=== PATIENT | male | born 1995 ===

== ENCOUNTER 2017-09-16 09:23 | Observation (INO) | payer OTHER ==
[~2017-09-16] VITALS: Ht 175.3 cm; Wt 78.0 kg
[2017-09-16] VITALS (7 sets, daily range): BP systolic 94–118; BP diastolic 53–74; PULSE 93–108; TEMP 37.2–38.1; O2SAT 98–100; Ht 175.3 cm; Wt 78.0 kg
[2017-09-16] MEDS ORDERED: ACET-1256 PO (09:48)
[2017-09-16] MEDS ORDERED: ANT PO (09:48)
--- NOTE | 2017-09-16 10:32 | EMERGENCY ROOM VISIT NOTE ---
History Report prepared by Rafaelaibjerri: Krista Hernandez Under the Supervision of: Dr. Asad Grayson M.D. First contact with patient: 09:33 Chief Complaint: ABDOMINAL PAIN Stated Complaint: STOMACH PAIN Nursing Triage Summary: Bilateral lower abdominal pain starting yesterday morning. N/V/D. Denies urinary symptoms. History of Present Illness The patient is a 22 year old male who presents to the Emergency Room with complaints of persistent bilateral lower abdominal pain since yesterday morning. He rates his discomfort as a 5/10 in severity. He has also experienced nausea, vomiting and diarrhea. He vomited twice yesterday. There has been no blood in his vomit or in his stool. He states he feels warm and thinks he may have a fever. The patient has no history of abdominal surgery. He admits to some discomfort when urinating. He denies any abnormal penile discharge or hematuria. He has experienced no testicular pain. He last ate last night at 1930. Source of History: patient Onset: yesterday morning Position: abdomen (RLQ, LLQ ) Timing: other (persistent) Associated Symptoms: + fevers, + nausea, + vomiting, + diarrhea, + urinary symptoms Review of Systems See HPI for pertinent positives and negatives. A total of ten systems were reviewed and were otherwise negative. Past Medical & Surgical Medical Problems: (1) No significant past medical history Social History Smoking Status: Never Smoker Alcohol Use: occasionally Drug Use: none Marital Status: single Housing Status: lives with roommate Occupation Status: [employer] student Current/Historical Medications Scheduled PRN Acetaminophen (Tylenol), 500 MG PO UD PRN for illness Antacid (Antacid), 1 TAB PO UD PRN for illness Allergies Coded Allergies: Uncoded Nonscreenable Allergen (Verified Allergy, Unknown, tempurature flutuations, 09/16/17) Physical Exam Vital Signs Date Time Temp Pulse Resp B/P (MAP) Pulse Ox O2 Delivery O2 Flow Rate FiO2 09/16/17 15:25 37.2 109 17 110/76 100 Nasal Cannula 2 09/16/17 15:15 114 21 125/72 99 Nasal Cannula 2 09/16/17 15:05 118 16 124/68 99 Nasal Cannula 2 09/16/17 14:55 119 14 109/71 98 Nasal Cannula 2 09/16/17 14:45 117 20 123/66 100 Oxymask 8 09/16/17 14:35 114 19 118/60 100 Oxymask 8 09/16/17 14:25 37.1 127 18 114/54 96 Oxymask 8 09/16/17 13:21 117 18 119/59 98 09/16/17 13:00 117 18 119/59 98 Room Air 09/16/17 10:54 130 18 98/52 100 Room Air 09/16/17 09:25 37.0 130 20 98/59 95 Room Air Physical Exam Physical Exam GENERAL: He is oriented to person, place, and time. He appears well-developed and well-nourished. He does not appear distressed. ____ HENT: Exam performed. Head: Normocephalic and atraumatic. Right Ear: External ear normal. No mastoid tenderness. Left Ear: External ear normal. No mastoid tenderness. Mouth/Throat: The oropharynx is clear and moist. No trismus in the jaw. No dental abscesses or uvula swelling. No oropharyngeal exudate or tonsillar abscesses. ____ EYES: Conjunctivae and EOM are normal. Pupils are equal, round, and reactive to light. Right eye exhibits no discharge. Left eye exhibits no discharge. No scleral icterus. ____ NECK: Normal range of motion. Neck supple. No JVD present. No spinous process tenderness present. No carotid bruit present. No rigidity. No tracheal deviation and normal range of motion present. No Brudzinski's sign and no Kernig 's sign noted. ____ CV: Normal rate, regular rhythm, normal heart sounds and intact distal pulses. There is no peripheral edema. Palpable radial pulses bue. ____ PULM/CHEST: Effort normal and breath sounds normal. No respiratory distress. No stridor. He has no wheezes. He has no rales. Chest Wall: He exhibits no tenderness. ____ ABD: The abdomen is soft. Tenderness on palpation of the RLQ and suprapubic area. Bowel sounds are normal. He has no distension. No mass is present. . There is no rebound, no guarding, no Leon's sign. Tenderness at McBurney's point. Rovsig negative MUSC/SKEL: Normal range of motion. There is no peripheral edema, tenderness or deformity. LYMPH: No cervical adenopathy. ____ NEURO: He is alert and oriented to person, place, and time. He has normal strength. No cranial nerve deficit or sensory deficit. Coordination and gait normal. GCS eye subscore is 4. GCS verbal subscore is 5. GCS motor subscore is 6. cerebellar tests wnl. ____ SKIN: Skin is warm and dry. He is not diaphoretic. ____ PSYCH: He has a normal mood and affect. His behavior is normal. Judgment and thought content normal. ____ Medical Decision & Procedures ER Provider Diagnostic Interpretation: Radiology results as stated below per my review and radiologist interpretation: ABD/PELVIS IV CONTRAST ONLY CT DOSE: 448.74 mGy.cm HISTORY: Right flank pain r/o appy TECHNIQUE: Multiaxial CT images of the abdomen and pelvis were performed following the use of intravenous contrast. A dose lowering technique was utilized adhering to the principles of ALARA. COMPARISON STUDY: None. FINDINGS: Lung bases are clear. Liver spleen and pancreas enhance uniformly. Kidneys negative for mass or hydronephrosis. The gallbladder is negative for distention. The bowel pattern is nonobstructive. The appendix is retrocecal in location. It is distended at 9 mm. Moderate periappendiceal fat infiltration is present. This consistent with that of acute appendicitis. No evidence for abscess or collection. Several small regional reactive lymph nodes. Bladder is midline. No free fluid within the pelvic cul-de-sac. Pelvic bowel pattern is nonobstructive. IMPRESSION: 1. Acute appendicitis. 2. Moderate periappendiceal fat infiltrative change 3. No evidence for abscess collection or obstruction. The above report was generated using voice recognition software. It may contain grammatical, syntax or spelling errors. Electronically signed by: Jose Bergeron M.D. 09/16/2017 11:32 AM Laboratory Results 09/16/17 09:40 Red Blood Count 5.62, Mean Corpuscular Volume 81.1, Mean Corpuscular Hemoglobin 26.9, Mean Corpuscular Hemoglobin Concent 33.1, Mean Platelet Volume 10.6, Neutrophils (%) (Auto) 59.1, Lymphocytes (%) (Auto) 38.4, Monocytes (%) (Auto) 1.5, Eosinophils (%) (Auto) 0.7, Basophils (%) (Auto) 0.3, Neutrophils # (Auto) 4.48, Lymphocytes # (Auto) 2.91, Monocytes # (Auto) 0.11, Eosinophils # (Auto) 0.05, Basophils # (Auto) 0.02 09/16/17 09:40 Test 09/16/17 09:35 09/16/17 09:40 Urine Color YELLOW Urine Appearance CLEAR (CLEAR) Urine pH 7.5 (4.5-7.5) Urine Specific [place] 1.023 (1.000-1.030) Urine Protein NEG (NEG) Urine Glucose (UA) NEG (NEG) Urine Ketones NEG (NEG) Urine Occult Blood NEG (NEG) Urine Nitrite NEG (NEG) Urine Bilirubin NEG (NEG) Urine Urobilinogen NEG (NEG) Urine Leukocyte Esterase NEG (NEG) White Blood Count 7.57 K/uL (4.8-10.8) Red Blood Count 5.62 M/uL (4.7-6.1) Hemoglobin 15.1 g/dL (14.0-18.0) Hematocrit 45.6 % (42-52) Mean Corpuscular Volume 81.1 fL (80-100) Mean Corpuscular Hemoglobin 26.9 pg (25-34) Mean Corpuscular Hemoglobin Concent 33.1 g/dl (32-36) Platelet Count 268 K/uL (130-400) Mean Platelet Volume 10.6 fL (7.4-10.4) Neutrophils (%) (Auto) 59.1 % Lymphocytes (%) (Auto) 38.4 % Monocytes (%) (Auto) 1.5 % Eosinophils (%) (Auto) 0.7 % Basophils (%) (Auto) 0.3 % Neutrophils # (Auto) 4.48 K/uL (1.4-6.5) Lymphocytes # (Auto) 2.91 K/uL (1.2-3.4) Monocytes # (Auto) 0.11 K/uL (0.11-0.59) Eosinophils # (Auto) 0.05 K/uL (0-0.5) Basophils # (Auto) 0.02 K/uL (0-0.2) RDW Standard Deviation 39.7 fL (36.4-46.3) RDW Coefficient of Variation 13.4 % (11.5-14.5) Immature Granulocyte % (Auto) 0.0 % Immature Granulocyte # (Auto) 0.00 K/uL (0.00-0.02) Anion Gap 11.0 mmol/L (3-11) Est Creatinine Clear Calc Drug Dose 121.5 ml/min Estimated GFR () 129.7 Estimated GFR (Non- 111.9 BUN/Creatinine Ratio 8.4 (10-20) Calcium Level 9.6 mg/dl (8.5-10.1) Total Bilirubin 0.6 mg/dl (0.2-1) Aspartate Amino Transf (AST/SGOT) 19 U/L (15-37) Alanine Aminotransferase (ALT/SGPT) 36 U/L (12-78) Alkaline Phosphatase 85 U/L (45-117) Total Protein 8.7 gm/dl (6.4-8.2) Albumin 4.3 gm/dl (3.4-5.0) Globulin 4.4 gm/dl (2.5-4.0) Albumin/Globulin Ratio 1.0 (0.9-2) Lipase 116 U/L (73-393) Laboratory results reviewed by me Medications Administered Medications (Trade) Dose Ordered Sig/Guadalupe Route Start Time Stop Time Status Last Admin Dose Admin Sodium Chloride 1,000 ml @ 999 mls/hr Q1H1M STAT IV 09/16/17 10:37 09/16/17 11:37 DC 09/16/17 10:52 999 MLS/HR Ondansetron HCl (Zofran Inj) 4 mg NOW STAT IV 09/16/17 10:37 09/16/17 10:40 DC 09/16/17 10:52 4 MG Ceftriaxone Sodium (Rocephin Inj) 1 gm NOW STAT IV 09/16/17 11:44 09/16/17 11:47 DC 09/16/17 12:04 1 GM Metronidazole (Flagyl / Nss) 500 mg NOW STAT IV 09/16/17 11:44 09/16/17 11:47 DC 09/16/17 12:00 500 MG Ondansetron HCl (Zofran Inj) 4 mg ONE PRN IV 09/16/17 12:30 09/16/17 14:56 DC 09/16/17 14:51 4 MG Bupivacaine HCl/ Epinephrine Bitart (Sensorcaine/ Epinephrine 0.5% Mpf 1:200,000) 30 ml STK-MED ONCE .ROUTE 09/16/17 13:15 09/16/17 13:16 DC 09/16/17 14:00 20 ML Promethazine HCl 12.5 mg/Sodium Chloride 50.5 ml @ 202 mls/hr TODAY@1515 ONCE IV 09/16/17 15:15 09/16/17 15:29 DC 09/16/17 15:19 202 MLS/HR ED Course 1036: The patient was evaluated in room B10. A complete history and physical exam was performed. 1037: Zofran 4 mg IV, NSS 1000 ml @ 999 mls/hr iV. 1143: I reevaluated the patient. CT shows appendicitis. I discussed his CT scan results and he verbalized complete understanding and agreement. 1144: Flagyl 500 mg IV, Rocephin 1 gm IV. 1150: I discussed the patients case with Dr. Garcia, [facility]. The patient will be further evaluated. 1220: I reevaluated the patient. His vital signs are stable. I had a long discussion with the patient about the risks and benefits of being admitted for a surgical procedure, and he wants me to speak with his uncle and father. His father is in [place] and his uncle is in [place]. I attempted to connect with the patients father in [place] via the patients cellphone but was unsuccessful. I was able to speak with his uncle in [place], and he asked if the patient could be flown to [place] for surgery. I advised against this given the acuity of the patients condition. He is agreeable that the patient be treated here for a surgical procedure. Medical Decision CT shows appendicitis. IV antibiotics ordered. Patient admitted to surgery.I had a long discussion with the patient about the risks and benefits of being admitted for a surgical procedure, and he wants me to speak with his uncle and father. His father is in [place] and his uncle is in [place]. I attempted to connect with the patients father in [place] via the patients cellphone but was unsuccessful. I was able to speak with his uncle in [place], and he asked if the patient could be flown to [place] for surgery. I advised against this given the acuity of the patients condition. He is agreeable that the patient be treated here for a surgical procedure. Patient also agrees. Medication Reconcilliation Current Medication List: was personally reviewed by me Blood Pressure Screening Patient's blood pressure: Low blood pressure Consults Time Called: 1145 Consulting Physician: Dr. Garcia, [facility] Returned Call: 1150 I discussed the patients case with Dr. Garcia, [facility]. The patient will be further evaluated. Impression Primary Impression: Acute appendicitis Scribe Attestation The scribe's documentation has been prepared under my direction and personally reviewed by me in its entirety. I confirm that the note above accurately reflects all work, treatment, procedures, and medical decision making performed by me. The chart was completed utilizing [employer] Speech voice recognition software. Grammatical errors, random word insertions, pronoun errors, and incomplete sentences are an occasional consequence of this system due to software limitations, ambient noise, and hardware issues. Any formal questions or concerns about the content, text, or information contained within the body of this dictation should be directly addressed to the physician for clarification. Departure Information Dispostion Being Evaluated By Surgeon Patient Instructions My [facility]
[2017-09-16] MEDS ORDERED: ONDANSETRON INJ 2 MG/ML 2 ML VIAL IV STA (10:37)
[2017-09-16] MEDS ORDERED: SODIUM CHLORIDE 0.9% 1000ML 1,000 ML IV STA (10:37)
[2017-09-16 10:45] LABS: BASO % 0.3 %; BASO ABS # 0.02 K/uL (0-0.2); EOS % 0.7 %; EOS ABS # 0.05 K/uL (0-0.5); HEMATOCRIT 45.6 % (42-52); HEMOGLOBIN 15.1 g/dL (14.0-18.0); LYMPH % 38.4 %; LYMPH ABS # 2.91 K/uL (1.2-3.4); MEAN CELL VOLUME 81.1 fL (80-100); MEAN CORPUSCULAR HEMOGLOBIN 26.9 pg (25-34); MEAN CORPUSCULAR HGB CONC 33.1 g/dl (32-36); MEAN PLATELET VOLUME 10.6 fL (7.4-10.4); MONO % 1.5 %; MONO ABS # 0.11 K/uL (0.11-0.59); NEUT % 59.1 %; NEUT ABS # 4.48 K/uL (1.4-6.5); PLATELET COUNT 268 K/uL (130-400); RED CELL DISTRIBUTION WIDTH CV 13.4 % (11.5-14.5); RED CELL DISTRIBUTION WIDTH SD 39.7 fL (36.4-46.3); WHITE BLOOD COUNT 7.57 K/uL (4.8-10.8)
[2017-09-16] MEDS ORDERED: OPTIRAY 320 IV PRN (10:45)
[2017-09-16 10:53] LABS: ALBUMIN 4.3 gm/dl (3.4-5.0); CALCIUM 9.6 mg/dl (8.5-10.1); CREATININE 0.97 mg/dl (0.60-1.40); POTASSIUM 3.5 mmol/L (3.5-5.1)
[2017-09-16 10:56] LABS: TOTAL PROTEIN 8.7 gm/dl (6.4-8.2)
--- NOTE | 2017-09-16 11:33 | DIAGNOSTIC IMAGING REPORT ---
ABD/PELVIS IV CONTRAST ONLY CT DOSE: 448.74 mGy.cm HISTORY: Right flank pain r/o appy TECHNIQUE: Multiaxial CT images of the abdomen and pelvis were performed following the use of intravenous contrast. A dose lowering technique was utilized adhering to the principles of ALARA. COMPARISON STUDY: None. FINDINGS: Lung bases are clear. Liver spleen and pancreas enhance uniformly. Kidneys negative for mass or hydronephrosis. The gallbladder is negative for distention. The bowel pattern is nonobstructive. The appendix is retrocecal in location. It is distended at 9 mm. Moderate periappendiceal fat infiltration is present. This consistent with that of acute appendicitis. No evidence for abscess or collection. Several small regional reactive lymph nodes. Bladder is midline. No free fluid within the pelvic cul-de-sac. Pelvic bowel pattern is nonobstructive. IMPRESSION: 1. Acute appendicitis. 2. Moderate periappendiceal fat infiltrative change 3. No evidence for abscess collection or obstruction. The above report was generated using voice recognition software. It may contain grammatical, syntax or spelling errors. Electronically signed by: Joes Bergeron M.D. 09/16/2017 11:32 AM Dictated Date/Time: 09/16/2017 11:29 AM
[2017-09-16] MEDS ORDERED: CEFTRIAXONE SOD INJ 1 GM ADDVIAL IV STA (11:44)
[2017-09-16] MEDS ORDERED: METRONIDAZOLE 500MG / 100ML NSS IV STA (11:44)
[2017-09-16] MEDS ORDERED: EpHEDrine SULFATE INJ 50 MG/ML AMP IV PRN (12:30)
[2017-09-16] MEDS ORDERED: ATROPINE SULFATE 0.1 MG/ML 5ML SYR IV PRN (12:30)
[2017-09-16] MEDS ORDERED: FENTANYL CITRATE INJ 50 MCG/1 ML 2 ML VIAL IV PRN (12:30)
[2017-09-16] MEDS ORDERED: ONDANSETRON INJ 2 MG/ML 2 ML VIAL IV PRN ×2 (12:30→13:00)
[2017-09-16] MEDS ORDERED: ONDANSETRON INJ 2 MG/ML 2 ML VIAL ONE (12:42)
[2017-09-16] MEDS ORDERED: GLYCOPYRROLATE INJ 0.2 MG/ML VIAL ONE (12:42)
[2017-09-16] MEDS ORDERED: MIDAZOLAM HCL 1 MG/ML 2ML VIAL ONE (12:42)
[2017-09-16] MEDS ORDERED: EpHEDrine SULFATE INJ 50 MG/ML AMP ONE (12:42)
[2017-09-16] MEDS ORDERED: DEXAMETHASONE SOD INJ 4 MG/ML VIAL ONE (12:42)
[2017-09-16] MEDS ORDERED: PROPOFOL IV EMULSION 10 MG/ML 20 ML VIAL IV ONE (12:42)
[2017-09-16] MEDS ORDERED: LIDOCAINE HCL 2% 2 ML VIAL (20MG/ML) ONE (12:42)
[2017-09-16] MEDS ORDERED: NEOSTIGMINE METHYLSULFATE 5 MG/5 ML SYR ONE (12:42)
[2017-09-16] MEDS ORDERED: PHENYLEPHRINE HCL INJ 10 MG/ML VIAL ONE (12:42)
[2017-09-16] MEDS ORDERED: SUCCINYLCHOLINE CHLORIDE 20 MG/ML 10 ML VIAL IV ONE (12:42)
[2017-09-16] MEDS ORDERED: FENTANYL CITRATE INJ 50 MCG/1 ML 2 ML VIAL ONE (12:43)
--- NOTE | 2017-09-16 12:54 | History and Physical ---
History & Physical Date Sep 16, 2017. Chief Complaint abdominal pain History of Present Illness The patient is a 22 year old male who presented to the ED with complaints of persistent lower abdominal pain since yesterday morning, R>L. He rates his discomfort as a 5/10 in severity. He has also experienced nausea, vomiting and diarrhea. He vomited twice yesterday. There has been no blood in his vomit or in his stool. He has had a subjective fever. The patient has no history of abdominal surgery. He admits to some discomfort when urinating. He denies any abnormal penile discharge or hematuria. He has experienced no testicular pain. He last ate last night at [address]. A CT scan shows acute appendicitis. Past Medical/Surgical History Medical Problems: (1) No significant past medical history Additional History Hepatic Disease: No Endocrine Disorder: No Kidney Disease: No Hypertension: No Heart Disease: No Bleeding Tendencies: No Infectious Diseases: No Allergies Coded Allergies: Uncoded Nonscreenable Allergen (Verified Allergy, Unknown, tempurature flutuations, 09/16/17) Home Medications Scheduled PRN Acetaminophen (Tylenol), 500 MG PO UD PRN for illness Antacid (Antacid), 1 TAB PO UD PRN for illness Physical Examination Skin: warm/dry, no rash Eyes: normal inspection, EOMI, sclerae normal ENT: normal ENT inspection Head: normocephalic, atraumatic Neck: supple, no adenopathy, trachea midline Respiratory/Chest: lungs clear, normal breath sounds Cardiovascular: regular rate, rhythm Abdomen / GI: normal bowel sounds, + pertinent finding (RLQ tenderness with guarding) Back: normal inspection Extremities: normal inspection, normal range of motion Genitourinary - Male: normal male genitalia Neurologic/Psych: no motor/sensory deficits, alert, oriented x 3 Addiitonal Comments: ABD/PELVIS IV CONTRAST ONLY CT DOSE: 448.74 mGy.cm HISTORY: Right flank pain r/o appy TECHNIQUE: Multiaxial CT images of the abdomen and pelvis were performed following the use of intravenous contrast. A dose lowering technique was utilized adhering to the principles of ALARA. COMPARISON STUDY: None. FINDINGS: Lung bases are clear. Liver spleen and pancreas enhance uniformly. Kidneys negative for mass or hydronephrosis. The gallbladder is negative for distention. The bowel pattern is nonobstructive. The appendix is retrocecal in location. It is distended at 9 mm. Moderate periappendiceal fat infiltration is present. This consistent with that of acute appendicitis. No evidence for abscess or collection. Several small regional reactive lymph nodes. Bladder is midline. No free fluid within the pelvic cul-de-sac. Pelvic bowel pattern is nonobstructive. IMPRESSION: 1. Acute appendicitis. 2. Moderate periappendiceal fat infiltrative change 3. No evidence for abscess collection or obstruction. The above report was generated using voice recognition software. It may contain grammatical, syntax or spelling errors. Diagnosis Acute appendicitis ASA Classification: ASA Class I Plan of Treatment -IVF and IV abx -to OR for lap appendectomy
[2017-09-16] MEDS ORDERED: ZOLPIDEM TARTRATE 5 MG TAB PO PRN (13:00)
[2017-09-16] MEDS ORDERED: OXYCODONE/ACETAMINOPHEN 5-325 TAB PO PRN (13:00)
[2017-09-16] MEDS ORDERED: MAGNESIUM HYDROXIDE SUSP 30 ML UDC PO PRN (13:00)
[2017-09-16] MEDS ORDERED: MoRPHine SULFATE 2 MG/ML CARP IV PRN (13:00)
[2017-09-16] MEDS ORDERED: ALUMINUM/MAGNESIUM/SIMETH (MAALOX MAX) 30 ML UDC PO PRN (13:00)
[2017-09-16] MEDS ORDERED: BUPIVACAINE/EPINEPHRINE 0.5% MPF 1:200,000 30 ML VIAL ONE (13:15)
[2017-09-16] MEDS ORDERED: IV FLUIDS COMPLETED PRN (13:30)
[2017-09-16] MEDS ORDERED: ROCURONIUM BROMIDE 10 MG/ML 5 ML VIAL IV ONE (14:08)
--- NOTE | 2017-09-16 14:14 | [facility] Post Operative Brief Note ---
Immediate Operative Summary Operative Date Sep 16, 2017. Pre-Operative Diagnosis 1. Acute appendicitis. 2. Moderate periappendiceal fat infiltrative change 3. No evidence for abscess collection or obstruction. Post-Operative Diagnosis same as pre-operative Procedure(s) Performed Laparoscopic Appendectomy Surgeon Dr. Luis Antonio Garcia Base Manager Surgeon(s) none Estimated Blood Loss 10mL Findings Consistent with Post-Op Diagnosis Specimens Permanent: A. Appendix Drains None Anesthesia Type General Complication(s) none
[2017-09-16] MEDS ORDERED: MoRPHine SULFATE 4 MG/ML 1 ML CARP\\VIAL IV PRN (14:30)
--- NOTE | 2017-09-16 14:51 | OPERATIVE REPORT ---
DATE OF OPERATION: 09/16/2017 PREOPERATIVE DIAGNOSIS: Acute appendicitis. POSTOPERATIVE DIAGNOSIS: Same. PROCEDURE PERFORMED: Laparoscopic appendectomy. SURGEON: Dr. Luis Antonio Garcia. ENTERTAINMENT LAWYER: None. ANESTHESIA: General endotracheal with 0.5% Marcaine with epinephrine local. ESTIMATED BLOOD LOSS: 10 mL. COMPLICATIONS: None. DRAINS: None. SPECIMENS: Appendix to pathology. INDICATION FOR PROCEDURE: This is a 22-year-old male who was seen in the ER with a day history of abdominal pain. He underwent a workup which included a CT scan which showed an obvious acute appendicitis. We talked to him in detail about options and recommended laparoscopic appendectomy. He understands the risks and signed consent. We will plan on doing a laparoscopic appendectomy. DESCRIPTION OF PROCEDURE: The patient was taken to the OR and underwent excellent general endotracheal anesthesia. His abdomen was prepped and draped in normal sterile fashion. Transverse supraumbilical incision was made. Veress needle was inserted. Good pneumoperitoneum achieved to 15 mmHg pressure. A visualized 11 port was placed. Under direct visualization, a 5 suprapubic, a 5 right upper quadrant and a 12 left lower quadrant port were placed in normal fashion. The patient was placed in head down and rolled to the left. The atraumatic grasper was used to grasp the cecum down to its base. The base of the appendix was identified. With tension on the cecum, the tip of the appendix was mobilized from the right lower quadrant where it had become adhered to the inflammatory changes. Once this was placed on tension, Harmonic scalpel was used to take down the mesoappendix with minimal bleeding. This was done down to the base of the appendix. A DELORES stapler purple load used to transect the appendix at the base. There was a small area of tissue that was left and a 45 villafuerte load was used to take this small area of tissue, although the staple line had completely cross the lumen of the bowel. Once the appendix was completely mobilized, this was placed in an Endobag and sent for pathologic evaluation. Pneumoperitoneum was reestablished, 500 mL of saline were used to irrigate out the right lower quadrant. This was suctioned clear. Staple line was intact and showed minimal bleeding. No other abnormalities were noted in the abdominal cavity. The ports removed and pneumoperitoneum was decompressed. 0 Vicryl was used to close the defect at the 12 port. 0.5% Marcaine with epinephrine local was used to create a local field block. Interrupted Vicryl was used to close the skin. Steri-Strips and benzoin were used to reinforce the incision. Sterile dressings were applied. The patient tolerated the procedure without complications, sent to post-recovery for a period of observation and be discharged to his room for the rest of his care. I attest to the content of the Intraoperative Record and any orders documented therein. Any exception s are noted below.
[2017-09-16] MEDS ORDERED: NURSING VERBAL MED ORDER ONE (15:00)
[2017-09-16] MEDS ORDERED: PROMETHAZINE HCL INJ 12.5 MG in SODIUM CHLORIDE 0.9% 50ML 50 ML IV ONE (15:15)
--- NOTE | 2017-09-16 15:18 | Anesthesiology Progress Note ---
Anesthesia Post Op Note Date & Time Sep 16, 2017 at 15:17 Vital Signs Pain Intensity: 5 Vital Signs Past 12 Hours Date Time Temp Pulse Resp B/P (MAP) Pulse Ox O2 Delivery O2 Flow Rate FiO2 09/16/17 14:55 119 14 109/71 98 Nasal Cannula 2 09/16/17 14:45 117 20 123/66 100 Oxymask 8 09/16/17 14:35 114 19 118/60 100 Oxymask 8 09/16/17 14:25 37.1 127 18 114/54 96 Oxymask 8 09/16/17 13:21 117 18 119/59 98 09/16/17 13:00 117 18 119/59 98 Room Air 09/16/17 10:54 130 18 98/52 100 Room Air 09/16/17 09:25 37.0 130 20 98/59 95 Room Air Notes Mental Status: alert / awake / arousable, participated in evaluation Pt Amnestic to Procedure: Yes Nausea / Vomiting: adequately controlled Pain: adequately controlled Airway Patency, RR, SpO2: stable & adequate BP & HR: stable & adequate Hydration State: stable & adequate Anesthetic Complications: no major complications apparent
[2017-09-16] MEDS: CEFOXITIN IV 2,000 MG in DEXTROSE 5% 50ML 50 ML IV SCH (17:46)
[2017-09-16] MEDS: LACTATED RINGER'S 1000ML 1,000 ML IV SCH (18:56)
[2017-09-16] MEDS: ACETAMINOPHEN 325 MG TAB PO PRN (23:20)
[2017-09-17] VITALS (11 sets, daily range): BP systolic 77–113; BP diastolic 47–71; PULSE 72–103; TEMP 36.3–39.2; O2SAT 97–99
[2017-09-17] MEDS: CEFOXITIN IV 2,000 MG in DEXTROSE 5% 50ML 50 ML IV SCH ×2 (01:56→09:49)
[2017-09-17] MEDS: LACTATED RINGER'S 1000ML 1,000 ML IV SCH ×3 (01:56→20:49)
[2017-09-17] MEDS: ACETAMINOPHEN 325 MG TAB PO PRN ×2 (03:19→23:36)
[2017-09-17] MEDS ORDERED: NURSING VERBAL MED ORDER ONE (05:15)
[2017-09-17] MEDS ORDERED: COUGH DROP (SUGAR FREE) LOZ 24 LOZ/1 BOX LOZ PRN (05:30)
[2017-09-17] MEDS: IBUPROFEN 200 MG TAB PO PRN (05:38)
--- NOTE | 2017-09-17 11:08 | Surgery Progress Note ---
Surgery Progress Note Date of Service Sep 17, 2017. Subjective Post OP Day: 1 (s/p laparoscopic appendectomy) + feeling well, + complaints (sore throat), + pain controlled, + diet (full liquids), No chest pain, No SOB, No nausea, No vomiting Objective Vital Signs: Date Time Temp Pulse Resp B/P (MAP) Pulse Ox O2 Delivery O2 Flow Rate FiO2 09/17/17 09:52 37.3 09/17/17 07:51 37.7 101 16 102/60 (74) 97 Room Air 09/17/17 07:45 Room Air 09/17/17 05:00 39.2 09/17/17 04:43 37.8 09/17/17 03:15 39.2 103 16 113/66 (82) 98 Room Air 09/16/17 23:20 Room Air 09/16/17 23:05 38.1 108 16 94/53 (67) 99 Room Air 09/16/17 18:36 37.4 108 16 111/72 (85) 100 Room Air 09/16/17 18:25 Nasal Cannula 09/16/17 17:41 37.5 93 16 118/74 (89) 100 Room Air 09/16/17 16:40 37.3 99 105/68 (80) 100 Nasal Cannula 2.0 09/16/17 16:10 37.2 100 16 116/67 (83) 100 Nasal Cannula 2.0 09/16/17 15:45 Nasal Cannula 2.0 09/16/17 15:40 Nasal Cannula 09/16/17 15:40 37.6 104 16 105/69 (81) 98 Nasal Cannula 2.0 09/16/17 15:25 37.2 109 17 110/76 100 Nasal Cannula 2 09/16/17 15:15 114 21 125/72 99 Nasal Cannula 2 09/16/17 15:05 118 16 124/68 99 Nasal Cannula 2 09/16/17 14:55 119 14 109/71 98 Nasal Cannula 2 09/16/17 14:45 117 20 123/66 100 Oxymask 8 09/16/17 14:35 114 19 118/60 100 Oxymask 8 09/16/17 14:25 37.1 127 18 114/54 96 Oxymask 8 09/16/17 13:21 117 18 119/59 98 09/16/17 13:00 117 18 119/59 98 Room Air General Appearance: WD/WN, no apparent distress Head: normocephalic, atraumatic Neck: trachea midline Respiratory/Chest: no respiratory distress, no accessory muscle use Abdomen: non distended, soft, + tenderness (at incision sites, appropriate post op) Incision(s): clean, dry (dressings clean and dry with scant dired drainage) Laboratory Results: Results Past 24 Hours Test 09/17/17 11:01 Range/Units Assessment & Plan POD # 1 s/p laparoscopic appendectomy - febrile post op, Tmax 39.2 - pain moderate, controlled - no nausea or vomiting Plan: Continue current pain management Continue IV fluids (decrease to 100 mls/hr) Continue post op IV antibiotics Advance diet to soft diet will obtain cbc given fever hopeful discharge tomorrow morning encourage ambulation and OOB to chair Dr. Hackett has seen and examined patient, agrees with above
[2017-09-17 11:15] LABS: HEMATOCRIT 38.3 % (42-52); HEMOGLOBIN 12.8 g/dL (14.0-18.0); MEAN CELL VOLUME 80.1 fL (80-100); MEAN CORPUSCULAR HEMOGLOBIN 26.8 pg (25-34); MEAN CORPUSCULAR HGB CONC 33.4 g/dl (32-36); MEAN PLATELET VOLUME 9.7 fL (7.4-10.4); PLATELET COUNT 139 K/uL (130-400); RED CELL DISTRIBUTION WIDTH CV 13.6 % (11.5-14.5); RED CELL DISTRIBUTION WIDTH SD 39.7 fL (36.4-46.3); WHITE BLOOD COUNT 3.94 K/uL (4.8-10.8)
[2017-09-18] MEDS: LACTATED RINGER'S 1000ML 1,000 ML IV SCH (04:15)
[2017-09-18 07:19] VITALS: BP 121/77; PULSE 95; TEMP 37.2; O2SAT 97
[2017-09-18] MEDS ORDERED: OXYC-57 PO (08:52)
--- NOTE | 2017-09-18 08:56 | Discharge Instructions ---
Discharge Instructions Date of Service Sep 18, 2017. Admission Reason for Admission: Acute Appendicitis Discharge Discharge Diagnosis / Problem: same Discharge Goals Goal(s): Decrease discomfort, Improve function Activity Recommendations Activity Limitations: per Instructions/Follow-up section No heavy lifting over 10 pounds for 2 weeks No strenuous activity until cleared by surgeon No submerging incisions underwater for 2 weeks (no bathing, swimming, or hot tubs) No driving while taking narcotic pain medication or until you are pain free . Instructions / Follow-Up Instructions / Follow-Up You may shower in 2 days. (4 days after surgery). Sponge bath and wash hair in meantime. After 2 days, shower and remove outer dressings. Replace daily or as needed to keep clean and dry. Leave steri strips on incisions for 7 days and then remove. They may fall off on their own that is okay. Walking and light activity is encouraged to prevent blood clots from forming in the legs. When driving for long distance stop every hour to walk for 5 minutes or so. You will be given Narcotic pain medication (Percocet) as needed for moderate to severe pain. This medication may make you drowsy. You may take extra strength Tylenol or Ibuprofen as needed for mild pain. Follow-up in surgical office in 1-2 weeks, please call office at [phone] to make an appointment. Current Hospital Diet Patient's current hospital diet: N/A, Low Fiber Diet Discharge Diet Recommended Diet: Regular Diet Procedures Procedures Performed: Laparoscopic Appendectomy Pending Studies Studies pending at discharge: yes List of pending studies: appendix pathology- will be reviewed at follow up visit Medical Emergencies . Who to Call and When: Medical Emergencies: If at any time you feel your situation is an emergency, please call 911 immediately. . Non-Emergent Contact Non-Emergency issues call your: Primary Care Provider, Surgeon Call Non-Emergent contact if: you have a fever, temperature is above 101, your pain is not controlled, your pain is worsening, your pain is unusual for you, wound has increased drainage, wound has increased redness, wound has increased pain . "Provider Documentation" section prepared by Juanita Bennett. . VTE Core Measure Inpt VTE Proph given/why not?: SCD's [place] Drug Monitoring Program Search Results: patient reviewed within database, no issues identified
[2017-09-18] MEDS ORDERED: CHLORASEPTIC 1.4% SOLN 180 ML BTL MT PRN (09:00)
--- NOTE | 2017-09-18 09:01 | Surgery Progress Note ---
Surgery Progress Note Date of Service Sep 18, 2017. Subjective Post OP Day: 2 + feeling well, + complaints (sore throat), + ambulating, + bowel movement, + pain controlled, + diet (low fiber diet), No chest pain, No SOB, No nausea, No vomiting afebrile since yesterday morning Objective Vital Signs: Date Time Temp Pulse Resp B/P (MAP) Pulse Ox O2 Delivery O2 Flow Rate FiO2 09/18/17 08:30 Room Air 09/18/17 07:19 37.2 95 18 121/77 (92) 97 Room Air 09/17/17 23:25 Room Air 09/17/17 23:20 37.4 74 16 110/71 (84) 98 Room Air 09/17/17 19:20 37.0 83 16 94/59 (71) 98 Room Air 09/17/17 15:20 Room Air 09/17/17 15:15 36.9 78 16 100/68 (79) 99 Room Air 09/17/17 12:44 36.5 80 16 97/65 (76) 99 Room Air 09/17/17 09:52 37.3 General Appearance: WD/WN, no apparent distress Head: normocephalic, atraumatic Neck: trachea midline Respiratory/Chest: no respiratory distress, no accessory muscle use Abdomen: non distended, soft, no organomegaly, no pulsatile mass, + tenderness (at incision sites, appropriate post op) Incision(s): clean, dry (dressings clean and dry, dried drainage present, incisions not inspected) Laboratory Results: Results Past 24 Hours Test 09/17/17 11:01 Range/Units White Blood Count 3.94 4.8-10.8 K/uL Red Blood Count 4.78 4.7-6.1 M/uL Hemoglobin 12.8 14.0-18.0 g/dL Hematocrit 38.3 42-52 % Mean Corpuscular Volume 80.1 80-100 fL Mean Corpuscular Hemoglobin 26.8 25-34 pg Mean Corpuscular Hemoglobin Concent 33.4 32-36 g/dl RDW Standard Deviation 39.7 36.4-46.3 fL RDW Coefficient of Variation 13.6 11.5-14.5 % Platelet Count 139 130-400 K/uL Mean Platelet Volume 9.7 7.4-10.4 fL Assessment & Plan POD # 2 s/p laparoscopic appendectomy - afebrile since yesterday morning, wbc yesterday within normal limits - pain moderate, controlled - no nausea or vomiting, tolerating diet Plan: Discharge home today To travel back to [place] with Uncle Discharge instructions reviewed Chloraseptic spray ordered prn sore throat Rx for Percocet as needed for pain F/u surgical office 1-[address] Hackett has seen and examined patient, agrees with above
[2017-09-18] MEDS: IBUPROFEN 200 MG TAB PO PRN (09:27)
[2017-09-18 10:18] VITALS: BP 121/77; PULSE 95; TEMP 37.2; O2SAT 97
--- NOTE | 2017-09-20 15:57 | Discharge Summary ---
Discharge Summary Dates Admission Date / Time: Sep 16, 2017 at 12:57 Discharge Date: Sep 18, 2017 Dispostion / Condition Discharge Disposition: Home Condition at Discharge: Good Principal Diagnosis (1) Acute appendicitis Problem List (1) No significant past medical history Consultations / Procedures Consultations: None Procedures: Laparoscopic appendectomy Vaccinations: None Pending Studies / Follow-Up Appendix pathology. Will be reviewed at follow up visit. Medication Reconciliation New Medications: Oxycodone/Acetaminophen 5MG/325MG (Percocet 5MG/325MG) Tab 1 TABLET PO Q4H PRN for Pain, #18 TAB Continued Medications: Acetaminophen (Tylenol) 500 Mg Tab 500 MG PO UD PRN for illness, TAB Antacid (Antacid) . 1 TAB PO UD PRN for illness Admission HPI Per the Admitting provider: The patient is a 22 year old male who presented to the ED with complaints of persistent lower abdominal pain since yesterday morning, R>L. He rates his discomfort as a 5/10 in severity. He has also experienced nausea, vomiting and diarrhea. He vomited twice yesterday. There has been no blood in his vomit or in his stool. He has had a subjective fever. The patient has no history of abdominal surgery. He admits to some discomfort when urinating. He denies any abnormal penile discharge or hematuria. He has experienced no testicular pain. He last ate last night at 1930. A CT scan shows acute appendicitis. Hospital Course (1) Acute appendicitis Patient was taken to operating room for laparoscopic appendectomy possible open by Dr. Garcia. Patient was found to have acute appendicitis without perforation or abscess. Patient tolerated procedure well without any complications. Was transferred to recovery room and then to medical/surgical floor in stable condition. Post-op orders included IV fluids, PO Percocet with breakthrough IV morphine as needed for pain, clear liquid diet with advance diet as tolerated, activity as tolerated, IV Zofran as needed for nausea, and post op antibiotic Cefoxitin. ON POD #1 patient was evaluated. Patient was febrile the evening of postop day #0 in the morning of postop day #1. T-max was 39.2C. Vitals signs stable, tolerating full liquid diet, ambulating, urinating without difficulty, and pain controlled with oral pain medication. Diet was advanced as tolerated. Patient kept one more evening. Repeat CBC within normal limits. On postop day #2 patient was afebrile, vital signs stable , and abdominal pain controlled. Patient was discharged home on POD #2 in stable condition. Overall hospital course was uneventful. Discharge Instructions As given to patient Copies To Primary Care Provider: No Doctor, Assigned.
== END 2017-09-18 12:15 | disposition home or self-care (01) ==
LOC: C.EDB 09:26 → C.3E 12:57 → ENRESERV 14:55
PROVIDERS: ADMIT Surgery; ATTEND Surgery
DX: K35.80 Unspecified acute appendicitis (principal)

== ENCOUNTER 2017-10-28 13:51 | Emergency (ER) | payer OTHER ==
[~2017-10-28] VITALS: Ht 175.3 cm; Wt 74.2 kg
[~2017-10-28 13:51] MED LIST: ACET-1256 PO; ANT PO; OXYC-57 PO
[2017-10-28 13:57] VITALS: TEMP 36.8; Ht 175.3 cm; Wt 74.2 kg
[2017-10-28] MEDS ORDERED: SULFAMETHOXAZOLE/TRIMETHOPRIM DS 800/160MG TAB PO ONE (14:30)
[2017-10-28] MEDS ORDERED: CEPHALEXIN MONOHYDRATE 250 MG CAP PO ONE (14:30)
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
[2017-10-28] MEDS ORDERED: SULF800T23 PO (15:57)
[2017-10-28] MEDS ORDERED: CEPH500C PO (15:57)
[2017-10-28 16:10] VITALS: BP 177/100; PULSE 83; O2SAT 100
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
== END 2017-10-28 16:12 | disposition home or self-care (01) ==
LOC: EDUNIT# 13:51 → C.EDB 13:54 → C.EDD 16:12
DX: T76.11XA Adult physical abuse, suspected, initial encounter (principal); S00.81XA Abrasion of other part of head, initial encounter; X58.XXXA Exposure to other specified factors, initial encounter; L08.9 Local infection of the skin and subcutaneous tissue, unspecified; F17.200 Nicotine dependence, unspecified, uncomplicated